=== PATIENT | female | born 1945 | race Caucasian/White ===

== ENCOUNTER 2016-07-11 11:09 | Emergency (ER) | payer OTHER ==
[2016-07-11 11:29] VITALS: BP 163/76; PULSE 73; RESP 18; TEMP 97.6; O2SAT 97
--- NOTE | 2016-07-11 11:48 | UCPHY ---
H & P Time Seen by Provider: 07/11/16 11:37 Patient Type: New HPI/ROS: This patient complains of cough. She explains that for the past 2 weeks she has had a cough this primarily a dry cough occasionally productive of sputum worse in the morning. She also has occasional mild wheeze associated with this. She does not feel that her cough is improving. She and her drove from [place] to visit family here 2 weeks ago with ongoing symptoms since. ROS: No high fevers or chills though she does have low-grade subjective fevers at times. No significant fatigue. No other constitutional symptoms. HEENT: Mild nasal congestion. No facial pain. No ear pain. She does complain of Left eye discharge and redness over the past 24 hours without any vision change or eye pain Pulmonary: No pleuritic pain or respiratory distress. No hemoptysis. Cardiovascular: No chest pain and no lower extremity swelling or calf pain. 7 point ROS is otherwise negative Past Medical/Surgical History: Otherwise healthy Smoking Status: Former smoker Physical Exam: Physical Exam Vital signs are normal. General: No acute distress HEENT: Nose: Clear discharge bilaterally. No sinus tenderness to percussion. Ears: External canals and tympanic membranes are clear with no erythema or abnormal findings bilaterally. Oropharynx: No erythema or exudates. No dysphonia. No drooling or stridor. Eyes: Pupils equal and react to light. Extraocular motions are intact. There is mild conjunctival injection to the left eye lids and lashes are normal no active discharge. Lungs: Faint expiratory wheeze and rhonchi. No rales. No increased work of breathing. Cardiac: Regular rate and rhythm with no murmur gallop or rub Skin: No rash or pallor. Extremities: No calf swelling or tenderness Neuro: Alert with no focal deficits noted. Constitutional: Initial Vital Signs Temperature (C) 36.4 C 07/11/16 11:23 Heart Rate 73 07/11/16 11:23 Respiratory Rate 18 07/11/16 11:23 Blood Pressure 163/76 H 07/11/16 11:23 O2 Sat (%) 97 07/11/16 11:23 O2 Delivery Mode Room Air Allergies/Adverse Reactions: No Known Allergies Allergy (Unverified 07/11/16 11:22) Home Medications: Medication Instructions Recorded Albuterol Hfa Anes Only [Proair 2 puffs IH Q4 PRN #1 mdi 07/11/16 Hfa Icu (*)] Azithromycin [Zithromax] 250 mg PO DAILY #6 tab 07/11/16 Bystolic 07/11/16 Ofloxacin 0.3% [Ocuflox 0.3% (RX)] 2 drops EACHEYE Q1 #1 btl 07/11/16 Synthroid 112 mcg (*) 07/11/16 Medical Decision Making ED Course/Re-evaluation: Patient's findings are consistent with bronchitis that is gone off for 2 weeks. Will cover with macrolide antibiotic. I counseled regarding this she also has conjunctivitis without any concerning clinical findings. No clinical evidence of lower respiratory infection Departure - Departure Disposition: Home, Routine, Self-Care Clinical Impression: Acute bronchitis Qualifiers: Bronchitis organism: unspecified organism Qualified Code(s): J20.9 - Acute bronchitis, unspecified Conjunctivitis Qualifiers: Conjunctivitis type: acute Acute conjunctivitis type: unspecified Laterality: unspecified laterality Qualified Code(s): H10.30 - Unspecified acute conjunctivitis, unspecified eye Condition: Good Instructions: Acute Bronchitis (ED) Additional Instructions: Diagnosis: Acute bronchitis 2. Conjunctivitis Plan: Albuterol inhaler with spacer for cough, wheeze or shortness of breath Humidifier Zithromax antibiotic For your conjunctivitis-Ocuflox eyedrops as prescribed Return for any significant worsening despite treatment plan Referrals: [facility] [Other] - As per Instructions Prescriptions: Albuterol Hfa Anes Only [Proair Hfa Icu (*)] 2 puffs IH Q4 PRN #1 mdi PRN Reason: Wheezing Azithromycin [Zithromax] 250 mg PO DAILY #6 tab Ofloxacin 0.3% [Ocuflox 0.3% (RX)] 2 drops EACHEYE Q1 #1 btl - PQRS PQRS Measurement: 134: Depression screening and followup, PRIME -PHQ2 (12 years and older) Over the last 2 weeks, how often have you been bothered by any of the following problems? 1. Feeling down, depressed, or hopeless? 2. Little interest or pleasure in doing things? Patient answered no to both 1 and 2 130: Documentation of medications. Reviewed all patient medications, doses, route and frequency. 226: Do you smoke? [No.] 47: 65 and older: Advanced care planning. Patient designates surrogate decision maker as spouse 51: 18 years old and older with diagnosis of COPD, spirometry performance. NA 52: 18 years old and older with COPD and symptoms of COPD or FEV1<60% predicted prescribed a B Agonist. NA
== END 2016-07-11 12:04 | disposition home or self-care (01) ==
LOC: CED 11:09
DX: J20.9 Acute bronchitis, unspecified (principal); H10.30 Unspecified acute conjunctivitis, unspecified eye; Z87.891 Personal history of nicotine dependence
CPT/HCPCS: 99204-PO; G0463-PO